=== PATIENT | female | born 1995 | race Caucasian/White ===

== ENCOUNTER 2016-11-15 07:57 | Emergency (ER) | payer OTHER ==
[~2016-11-15] VITALS: Ht 154.9 cm; Wt 63.6 kg
[~2016-11-15 07:57] MED LIST: COUMADIN2.5 MG PO; CULTURELLE CAP1 EACH PO; FIRST-OMEPR2 MG/1 ML PO; FLAGYL500 MG PO; GABLOFEN10000 MCG/ IT; KEPPRA100 MG/1 M PO; LIORESAL I IT; LOVENOX60 MG/0.6 SC; MIRALAX17 GM PO; NORTREL1 EAC3 PO; PRILOSEC2.5 MG PO; TRILEPTAL300 MG/5 M GT; TRILEPTAL300 MG/5 M PO; VITAMIN D400 UNIT/1 PO; [UNRECOGNIZED DRUG - OTHER] J-TUBE; topiramate GT
[2016-11-15 10:11] LABS: ADD MIUA? YES; BILIRUBIN NEGATIVE; BLOOD SMALL; COLOR YELLOW ((YELLOW)); GLUCOSE (STRIP) NEGATIVE; KETONES NEGATIVE; LEUKOCYTES NEGATIVE; NITRITE NEGATIVE; PROTEIN (STRIP) NEGATIVE; SPECIFIC GRAVITY 1.016 (1.000-1.030); UROBILINOGEN 0.2 MG/DL (0.2-1.0)
[2016-11-15 10:13] LABS: BACTERIA NONE SEEN /HPF; EPITHELIAL CELLS NONE SEEN /HPF; MUCUS TRACE /LPF; RED BLOOD CELLS 0-5 /HPF (0-5); UCUL ADDED? NO; WHITE BLOOD CELLS 0-5 /HPF (0-5)
[2016-11-15 10:25] LABS: HEMATOCRIT 42.6 % (36.0-46.0); MCH 30.2 PG (29.0-34.0); MCHC 31.5 G/DL (30.0-36.0); MCV 96.2 FL (83-99); PLATELET COUNT 257 K/uL (156-360); RBC DIS.WIDTH-CV 11.9 % (11.8-14.6); RBC DIS.WIDTH-SD 41.7 % (39-53); RED BLOOD COUNT 4.43 M/uL (3.80-5.20); WHITE BLOOD COUNT 10.7 K/uL (4.1-10.2)
[2016-11-15 10:35] LABS: CHLORIDE 112 mEq/L (99-109); POTASSIUM 3.9 mEq/L (3.7-5.4); SODIUM 140 mEq/L (136-147)
[2016-11-15 10:36] LABS: GLUCOSE 85 mg/dL (70-99)
[2016-11-15 10:38] LABS: ANION GAP 10 MEQ/L (2-14)
[2016-11-15 10:40] LABS: GFR ESTIMATE (CALCULATED) > 59 mL/min/
[2016-11-15 10:41] LABS: UREA NITROGEN (BUN) 14 mg/dL (9-23)
[2016-11-15 11:07] LABS: EOSINOPHIL (%) 0.3 % (0-5); IMMATURE GRANULOCYTE (%) 0.3 % (0.0-0.7); INSTRUMENT ABS NEUTROPHIL CT 8.4 K/uL; LYMPHOCYTE COUNT 1.3 K/uL (1.0-2.8); MONOCYTE (%) 9.1 % (3-12); NEUTROPHIL (%) 78.2 % (45-76); NEUTROPHIL COUNT 8.4 K/uL (1.8-6.4)
[2016-11-15] MEDS ORDERED: ZITHROMAX Z-PA250 MG PO (12:11)
[2016-11-15 12:53] VITALS: BP 108/79
== END 2016-11-15 12:51 | disposition home or self-care (01) ==
LOC: EME 07:57
PROVIDERS: Emergency Medicine
DX: J06.9 Acute upper respiratory infection, unspecified (principal); G40.909 Epilepsy, unspecified, not intractable, without status epilepticus; G80.9 Cerebral palsy, unspecified; Z93.1 Gastrostomy status; J40 Bronchitis, not specified as acute or chronic
CPT/HCPCS: 71010; 80048; 81003; 85025; 99281; 99284